=== PATIENT | male | born 1970 | race Caucasian/White ===

== ENCOUNTER 2024-03-31 09:26 | Day surgery (SDC) | payer OTHER ==
[~2024-03-31] VITALS: Ht 167.6 cm; Wt 93.0 kg
[2024-03-31] MEDS ORDERED: MIDAZOLAM 2 MG/2 ML VIAL ONE (11:42)
[2024-03-31] MEDS ORDERED: fentaNYL citrate 0.05 MG/ML VIAL ONE (11:42)
[2024-03-31] MEDS: MIDAZOLAM 2 MG/2 ML VIAL IVP ONE (11:48)
== END 2024-03-31 13:05 | disposition home or self-care (01) ==
LOC: MDS 09:26 → MMU 09:29 → MDS 13:05
PROVIDERS: ATTEND Internal Medicine Gastroenterology
DX: R10.13 Epigastric pain (principal); I10 Essential (primary) hypertension; E78.00 Pure hypercholesterolemia, unspecified; J45.909 Unspecified asthma, uncomplicated; Z90.49 Acquired absence of other specified parts of digestive tract; Z98.890 Other specified postprocedural states; Z79.899 Other long term (current) drug therapy
CPT/HCPCS: 36415; 43239; 86677; J2250; J3010